=== PATIENT | male | born 1960 | race African-American/Black ===

== ENCOUNTER 2019-11-16 12:00 | Outpatient (CLI) | payer OTHER ==
--- NOTE | 2019-11-16 20:26 | RAD ---
RIGHT FOOT THREE VIEWS: 11/16/19 No fracture or periosteal reaction was seen. No area of bony destruction was appreciated. The exact s ite of the foot ulcer was not specified, but I do not see any bony erosions to allow me to diagnose o steomyelitis at this time. Dense arterial calcifications are present throughout the ankle and foot. IMPRESSION: No acute bony findings. POS: HOME
--- NOTE | 2019-11-16 20:30 | RAD ---
ACUTE ABDOMEN SERIES: 11/16/19 Supine and erect films show no free air beneath the diaphragm. The gas patter is normal, but there is a considerable amount of fecal material in the colon. No calcifications of concern were seen. The so ft tissues were unremarkable. There were no acute bony changes. The chest film in the series is compared with a 06/22/18 study. While the heart is enlarged, it is sm aller than it was previously. There is no congestive change. The lungs are clear. IMPRESSION: Moderate constipation. POS: HOME
== END 2019-11-16 12:01 | disposition home or self-care (01) ==
LOC: BURRAD 12:00
PROVIDERS: ATTEND Family Medicine
DX: E11.621 Type 2 diabetes mellitus with foot ulcer (principal); R10.10 Upper abdominal pain, unspecified; K59.00 Constipation, unspecified
CPT/HCPCS: 74022